=== PATIENT | female | born 1975 | race Caucasian/White ===

== ENCOUNTER 2022-04-05 10:31 | Outpatient (CLI) | payer OTHER, SELFPAY ==
[2022-04-05 22:23] LABS: Cholesterol* 190 mg/dL (90-199)
[2022-04-05 22:24] LABS: HDL Cholesterol* 69 mg/dL (>=50); LDL Cholesterol Calculated 101 mg/dL (<100); Triglycerides* 101 mg/dL (40-149)
[2022-04-05 22:33] LABS: C Reactive Protein* < 0.5 mg/dL (0.5-1.0)
[2022-04-07 20:58] LABS: Rheumatoid Factor <10 IU/mL (0-14)
== END 2022-04-05 10:32 | disposition home or self-care (01) ==
PROVIDERS: PCP Nurse Practitioner Family; Visit Provider Family Medicine
DX: E78.5 Hyperlipidemia, unspecified (principal); M25.531 Pain in right wrist
CPT/HCPCS: 80061; 86140; 86200; 86431